=== PATIENT | male | born 1975 | race Hispanic/Latino ===

== ENCOUNTER 2016-11-24 08:13 | Emergency (ER) | payer OTHER ==
--- NOTE | 2016-11-24 08:29 | ED.PDOC ---
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 - History of Present Illness Timing/Duration: other - YESTERDAY Improving Factors: nothing Worsening Factors: movement Associated Symptoms: denies symptoms Home Medications: Ambulatory Orders Cyclobenzaprine HCl [Flexeril] 10 mg PO TID PRN #15 tab 11/24/16 Indomethacin 50 mg PO TID PRN #14 cap 11/24/16 Review of Systems - Review of Systems Constitutional: Denies: chills, fever EENTM: States: no symptoms reported Respiratory: Denies: cough, short of breath Cardiology: Denies: chest pain, palpitations Gastrointestinal/Abdominal: Denies: abdominal pain, nausea, vomiting Genitourinary: States: other - NO INCONTINENCE. Denies: dysuria, hematuria Musculoskeletal: States: back pain. Denies: joint pain, neck pain Skin: States: no symptoms reported Neurological: Denies: numbness, paresthesia, weakness Endocrine: States: no symptoms reported Hematologic/Lymphatic: States: no symptoms reported Past Medical History (General) - Patient Medical History Hx Hypertension: No Hx Diabetes: No - Social History Hx Tobacco Use: No Hx Alcohol Use: No Physical Exam - Physical Exam General Appearance: Alert, No apparent distress, Other - UNCOMFORTABLE Eye Exam: bilateral normal Ears, Nose, Throat: hearing grossly normal, normal ENT inspection Neck: full range of motion, supple, normal inspection Respiratory: normal breath sounds, no respiratory distress Cardiovascular/Chest: regular rate, rhythm, no murmur Gastrointestinal/Abdominal: non tender, soft, no organomegaly Back Exam: no CVA tenderness, other - TTP TOPHER LUMBAR PARASPINOUS AREA, MILD SPASM, NO MIDLINE ABNORMALITY Extremity: normal range of motion, normal inspection Neurologic: no motor/sensory deficits, normal mood/affect, other - ST 5/5 SENS INTACT, DTR'S 2+/4+ Skin Exam: normal color, warm/dry Lymphatic: no adenopathy Departure - Departure Clinical Impression: Lumbosacral strain Qualifiers: Encounter type: initial encounter Qualifier Code: (S39.012A) Strain of muscle, fascia and tendon of lower back, initial encounter Disposition: Discharge to Home or Self Care Condition: Good Departure Forms: ED Discharge - Pt. Copy, Patient Portal Self Enrollment Instructions: DI for Low Back Pain Prescriptions: Cyclobenzaprine HCl [Flexeril] 10 mg PO TID PRN #15 tab PRN Reason: Pain Indomethacin 50 mg PO TID PRN #14 cap PRN Reason: Pain Home Medications: Ambulatory Orders Cyclobenzaprine HCl [Flexeril] 10 mg PO TID PRN #15 tab 11/24/16 Indomethacin 50 mg PO TID PRN #14 cap 11/24/16 Additional Instructions: HOLD MELOXICAM WHILE TAKING INDOCIN
[2016-11-24] MEDS ORDERED: ORPHENADRINE CITRATE 30 MG/ML AMP IM ONE (08:31)
[2016-11-24] MEDS ORDERED: KETOROLAC TROMETHAMINE INJ 60 MG/2 ML VIAL IM ONE (08:31)
[2016-11-24 09:39] VITALS: BP 144/95; TEMP 98; O2SAT 97
== END 2016-11-24 09:25 | disposition home or self-care (01) ==
LOC: ER 08:13
DX: S39.012A Strain of muscle, fascia and tendon of lower back, initial encounter (principal); X58.XXXA Exposure to other specified factors, initial encounter
CPT/HCPCS: J1885; J2360